=== PATIENT | female | born 1980 | race Caucasian/White ===

== ENCOUNTER → 2025-03-06 | Outpatient (CLI) | payer BC ==
[~2025-03-06] MED LIST: GADOTERATE MEGLUMINE 10 MMOL/20 ML VIAL IV ONE
--- NOTE | 2025-03-07 10:39 | HMCIMG ---
EXAM: MR Neck with and Without IV contrast CLINICAL HISTORY: Patient presents with localized enlarged cervical lymph nodes. TECHNIQUE: Multisequence, multiplanar magnetic resonance images of the neck with and without intravenous contrast. COMPARISON: None provided. FINDINGS: NASOPHARYNX: Incidental enlarged adenoids with moderate narrowing of the nasopharyngeal airway, suggesting adenoid hypertrophy. OROPHARYNX: Unremarkable. HYPOPHARYNX: Unremarkable. LARYNX: Normal epiglottis. No abnormality. RETROPHARYNGEAL SPACE: Unremarkable. SALIVARY GLANDS: Parotid and submandibular glands unremarkable. LYMPH NODES: No pathologically enlarged cervical lymph nodes. Few small subcentimetric nodes in bilateral level II, III, and V, likely reactive. THYROID: Unremarkable. No nodule. BONES: No acute fracture or aggressive appearing osseous lesion. Straightening of the cervical lordosis with multilevel mild to moderate spondylosis. IMPRESSION: Few small subcentimetric nodes in bilateral level II, III, and V, likely reactive. Incidental enlarged adenoids with moderate narrowing of the nasopharyngeal airway, suggesting adenoid hypertrophy. Straightening of cervical lordosis, possibly secondary to paraspinal muscle spasm. Multilevel mild to moderate cervical spondylosis. Recommendation: Clinical correlation. Follow-up only if persistent enlargement or new symptoms develop. /Deridder
== END | disposition home or self-care (01) ==
LOC: RAH 13:12
PROVIDERS: ATTEND Internal Medicine Hematology & Oncology
DX: M47.812 Spondylosis without myelopathy or radiculopathy, cervical region (principal); M40.40 Postural lordosis, site unspecified; R91.1 Solitary pulmonary nodule; M89.9 Disorder of bone, unspecified; Z80.3 Family history of malignant neoplasm of breast; Z85.3 Personal history of malignant neoplasm of breast; Z80.6 Family history of leukemia
CPT/HCPCS: 72156; A9575